=== PATIENT | male | born 1940 | race Caucasian/White ===

== ENCOUNTER 2020-07-16 14:15 | Inpatient (IN) ==
[2020-07-16 15:29] LABS: Bilirubin,Urine Negative (Negative); Blood,Urine Negative (Negative); Clarity,Urine Clear (Clear); Color,Urine Colorless (Yellow); Glucose,Urine (UA) Normal (Normal); Ketones,Urine Negative (Negative); Leukocyte Esterase,Urine Negative (Negative); Nitrite,Urine Negative (Negative); PH,Urine 6.5 pH Units (5.0-8.0); Protein,Urine Negative (Neg-Trace); Specific Gravity,Urine 1.008 (1.010-1.025); Urobilinogen,Urine Normal (Normal)
[2020-07-16 15:42] LABS: Basophils % 0.5 %; Eosinophils # 0.1 K/mcL (0.0-0.6); Eosinophils % 1.5 %; Hematocrit 47.8 % (37.5-50.1); Hemoglobin 16.2 g/dL (12.9-16.9); Immature Granulocytes % 0.2 % (0-4); Lymphocytes # 1.1 K/mcL (0.6-4.6); Lymphocytes % 16.5 %; Mean Corpuscular HGB Conc 33.9 g/dL (31.6-35.5); Mean Corpuscular Hemoglobin 32.3 pg (28.0-33.3); Mean Corpuscular Volume 95.4 fL (83.0-100.0); Mean Platelet Volume 9.7 fL (9.4-12.4); Monocytes # 0.5 K/mcL (0.0-1.3); Monocytes % 7.6 %; Neutrophils # 4.9 K/mcL (1.6-8.9); Platelet Count 248 K/mcL (140-400); Red Blood Count 5.01 M/mcL (4.19-5.50); Red Cell Distribution Width 12.4 % (11.5-14.5); Segmented Neutrophils % 73.7 %; White Blood Count 6.6 K/mcL (4.3-11.1)
[2020-07-16 16:04] LABS: Alanine Aminotransferase 24 Units/L (7-52); Albumin 4.9 g/dL (3.5-5.7); Albumin/Globulin Ratio 1.9 (1.1-2.2); Alkaline Phosphatase 85 Units/L (34-104); Aspartate Amino Transferase 21 Units/L (13-39); BUN/Creatinine Ratio 18 (6-26); Bilirubin,Total 0.8 mg/dL (0.3-1.0); Blood Urea Nitrogen 19 mg/dL (8-23); Calcium 10.6 mg/dL (8.6-10.3); Carbon Dioxide 28 mEq/L (23-29); Chloride 101 mEq/L (98-107); Globulin 2.6 g/dL (2.4-3.5); Glucose 164 mg/dL (70-105); Magnesium 2.1 mg/dL (1.6-2.6); Osmolality,Calculated 290 (280-300); Phosphorous 2.9 mg/dL (2.7-4.5); Potassium 4.1 mEq/L (3.5-5.1); Sodium 137 mEq/L (136-145); Total Protein 7.5 g/dL (6.4-8.9); Troponin I < 0.03 ng/mL (< 0.04); eGFR For African Americans > 60 (> 60); eGFR For Non-African Americans > 60 (> 60)
[2020-07-16] MEDS ORDERED: Isovue-370 500 ML BOTTLE IVP ONE (16:36)
[2020-07-16] MEDS ORDERED: Naloxone 0.4 MG/ML INJ IVP PRN (19:28)
[2020-07-16] MEDS ORDERED: clonazePAM 0.5 MG TABLET PO SCH (21:00)
[2020-07-16] MEDS: Acetaminophen 325 MG TABLET PO PRN (21:51)
[2020-07-17 00:52] LABS: Basophils % 0.4 %; Eosinophils # 0.2 K/mcL (0.0-0.6); Eosinophils % 2.3 %; Hematocrit 46.5 % (37.5-50.1); Hemoglobin 15.5 g/dL (12.9-16.9); Immature Granulocytes % 0.3 % (0-4); Lymphocytes # 1.7 K/mcL (0.6-4.6); Lymphocytes % 24.2 %; Mean Corpuscular HGB Conc 33.3 g/dL (31.6-35.5); Mean Corpuscular Volume 96.1 fL (83.0-100.0); Mean Platelet Volume 9.5 fL (9.4-12.4); Monocytes # 0.7 K/mcL (0.0-1.3); Monocytes % 10.3 %; Neutrophils # 4.3 K/mcL (1.6-8.9); Platelet Count 252 K/mcL (140-400); Red Blood Count 4.84 M/mcL (4.19-5.50); Red Cell Distribution Width 12.3 % (11.5-14.5); Segmented Neutrophils % 62.5 %; White Blood Count 6.8 K/mcL (4.3-11.1)
[2020-07-17 01:02] LABS: INR 1.1; Prothrombin Time 12.4 Seconds (9.4-12.1)
[2020-07-17 01:04] LABS: Activated Partial Thrombo Time 31.4 Seconds (26.0-36.0)
[2020-07-17 01:13] LABS: Alanine Aminotransferase 21 Units/L (7-52); Albumin 4.5 g/dL (3.5-5.7); Alkaline Phosphatase 70 Units/L (34-104); Aspartate Amino Transferase 19 Units/L (13-39); BUN/Creatinine Ratio 17 (6-26); Bilirubin,Total 0.7 mg/dL (0.3-1.0); Blood Urea Nitrogen 18 mg/dL (8-23); Carbon Dioxide 28 mEq/L (23-29); Chloride 103 mEq/L (98-107); Chol/HDL Ratio 5.7 (0-4.9); Cholesterol 171 mg/dL (< 200); Globulin 2.3 g/dL (2.4-3.5); Glucose 113 mg/dL (70-105); HDL Cholesterol 30 mg/dL (40-59); LDL Cholesterol,Calculated 100 mg/dL (< 100); Osmolality,Calculated 289 (280-300); Potassium 4.2 mEq/L (3.5-5.1); Sodium 138 mEq/L (136-145); Total Protein 6.8 g/dL (6.4-8.9); Triglycerides 205 mg/dL (< 150); eGFR For African Americans > 60 (> 60); eGFR For Non-African Americans > 60 (> 60)
[2020-07-17] MEDS: Acetaminophen 325 MG TABLET PO PRN ×2 (06:25→22:30)
[2020-07-17] MEDS: clonazePAM 0.5 MG TABLET PO PRN ×2 (06:26→22:30)
[2020-07-17] MEDS: Aspirin Enteric Coated 81 MG Tablet PO SCH (08:40)
[2020-07-17] MEDS: *HR* Metformin 500 MG TABLET PO SCH ×2 (08:40→16:55)
[2020-07-17] MEDS ORDERED: (Ezetimibe [Zetia] 10 MG) PO SCH (09:00)
[2020-07-17] MEDS ORDERED: NON-FORMULARY MEDICATION 1 EACH EACH (Omega-3s/Dha/Epa/Fish Oil [Fish Oil Omega-3 Softgel] PO SCH (09:00)
[2020-07-17] MEDS ORDERED: UBIDECARENONE 100 MG PO SCH (09:00)
[2020-07-18] MEDS: clonazePAM 0.5 MG TABLET PO PRN (06:44)
[2020-07-18 06:55] VITALS: BP 153/73
[2020-07-18 07:18] LABS: Estimated Average Glucose 134 mg/dl; Hemoglobin A1C 6.3 %
[2020-07-18] MEDS: Aspirin Enteric Coated 81 MG Tablet PO SCH (08:02)
[2020-07-18] MEDS: *HR* Metformin 500 MG TABLET PO SCH (08:02)
[2020-07-18] MEDS ORDERED: Metoprolol XL (24 HR) Succ 25 MG TAB.ER.24H PO SCH (09:00)
[2020-07-18] MEDS ORDERED: Fluticasone Propionate Nasal 50 MCG/SPRAY BOTTLE NS SCH (18:00)
== END 2020-07-18 12:31 | disposition home or self-care (01) | DRG 69 ==
LOC: 3BNU 14:15 → EMEROOARM 14:15 → 3BNU 19:57 → SUATTDRO 07-17 14:12
PROVIDERS: ADMIT Family Medicine; ATTEND Internal Medicine